=== PATIENT | female | born 1935 | race Caucasian/White ===

== ENCOUNTER 2020-09-20 12:21 | Inpatient (IN) | payer OTHER ==
[~2020-09-20] VITALS: Ht 152.4 cm; Wt 38.6 kg
[~2020-09-20 12:21] MED LIST: ALENDRONATE SOD70 MG PO; ATENOLOL50 MG PO; CALCIUM + VITA1 EACH; CALCIUM + VITA1 EACH PO; CRANBERRY500 MG PO; FISH OIL 1,0001 EAC2 PO; LOSARTAN POTASS50 MG PO; PRAVASTATIN SOD10 MG PO; VITAMIN D1000 UNIT PO
[2020-09-20] MEDS ORDERED: PIPERACILLIN/TAZO 4.5 GM 100 ML IV STA (12:30)
[2020-09-20 13:53] LABS: BASOPHILS # (AUTO) 0.1 (0.0-0.1); BASOPHILS % 0.3 % (0.0-1.0); EOSINOPHILS # (AUTO) 0.2 (0.0-0.4); EOSINOPHILS % 0.7 % (0.0-6.0); HEMATOCRIT 35.3 % (34.2-44.1); HEMOGLOBIN 11.2 g/dL (12.0-16.0); LYMPHOCYTES # (AUTO) 13.7 (1.0-3.2); LYMPHOCYTES % 63.8 % (18.0-39.1); MEAN CORPUSCULAR HEMOGLOBIN 28.4 pg (28-32); MEAN CORPUSCULAR HGB CONC 31.7 g/dL (31-35); MEAN CORPUSCULAR VOLUME 89.6 fL (81-99); MONOCYTES # (AUTO) 1.1 (0.2-0.8); NEUTROPHILS # (AUTO) 6.4 (2.1-6.9); NEUTROPHILS % 29.7 % (38.7-80.0); PLATELET COUNT 311 x10e3/uL (140-360); RED BLOOD COUNT 3.94 x10e6/uL (3.6-5.1); RED CELL DISTRIBUTION WIDTH 16.3 % (11.7-14.4)
[2020-09-20 14:06] LABS: ALBUMIN 3.2 g/dL (3.5-5.0); ALBUMIN/GLOBULIN RATIO 0.7 (0.8-2.0); ANION GAP 14.3 mmol/L (8-16); CALCIUM 8.9 mg/dL (8.4-10.2); CREATININE, SERUM 1.17 mg/dL (0.57-1.11); POTASSIUM 3.3 mmol/L (3.5-5.1)
[2020-09-20 14:24] LABS: MONOCYTES % (MANUAL) 3 % (3.4-9.0); NEUTROPHILS % (MANUAL) 18 % (40-74)
[2020-09-20 14:34] LABS: BLAST CELLS % MANUAL 2; LYMPHOCYTES % (MANUAL) 77 % (19-48)
[2020-09-20 14:36] LABS: ANISOCYTOSIS SLIGHT; PLATELET ESTIMATE ADEQUATE; PLATELET MORPHOLOGY COMMENT NORMAL; RBC MORPHOLOGY COMMENT NORMAL
[2020-09-20 16:05] VITALS: BP 131/68
[2020-09-20 16:45] VITALS: BP 131/68
[2020-09-20] MEDS ORDERED: ONDANSETRON HCL INJ 2MG/ML 2ML 2 MG/ML VIAL IV PRN (18:00)
[2020-09-20] MEDS ORDERED: VANCOMYCIN 1GM/NS 250 ML 250 ML IV SCH (18:00)
[2020-09-20] MEDS ORDERED: ACETAMINOPHEN 325 MG TAB PO PRN (18:00)
[2020-09-20] MEDS ORDERED: SODIUM CHLORIDE 0.9% 250ML 250 ML ONE (18:13)
[2020-09-20 18:54] LABS: CLARITY,URINE CLOUDY (CLEAR); COLOR,URINE BROWN (YELLOW); KETONES,URINE NEGATIVE (NEGATIVE); LEUKOCYTE ESTERASE ,URINE LARGE (NEGATIVE); NITRITE,URINE POSITIVE (NEGATIVE); PROTEIN,URINE DIPSTICK >=300 (NEGATIVE); URINE UROBILINOGEN 1 mg/dL (0.2 - 1)
[2020-09-20 19:06] LABS: BACTERIA,URINE MANY /HPF; WBC,URINE (MAN) 0-5 /HPF (0-5)
[2020-09-20] MEDS: VANCOMYCIN 500MG/NS 0.9% 100ML 100 ML IV SCH (20:00)
[2020-09-20 20:06] VITALS: BP 131/68
[2020-09-20 20:19] VITALS: BP 121/84
[2020-09-20 20:53] VITALS: BP_SYST 121; BP_DIAS 67; BP_DIAS 84
[2020-09-20] MEDS: CEFEPIME 1GM/NS 0.9% 50 ML 50 ML IV SCH (21:10)
[2020-09-20] MEDS ORDERED: CEFEPIME 1GM/NS 0.9% 50 ML 50 ML IV SCH (22:00)
[2020-09-20] MEDS ORDERED: HYDRALAZINE HCL 25 MG TAB PO PRN (22:30)
[2020-09-21] VITALS (7 sets, daily range): BP systolic 116–137; BP diastolic 77–89
[2020-09-21 06:14] LABS: BASOPHILS # (AUTO) 0.1 (0.0-0.1); BASOPHILS % 0.3 % (0.0-1.0); EOSINOPHILS # (AUTO) 0.1 (0.0-0.4); EOSINOPHILS % 0.4 % (0.0-6.0); HEMATOCRIT 30.9 % (34.2-44.1); HEMOGLOBIN 9.8 g/dL (12.0-16.0); LYMPHOCYTES # (AUTO) 18.7 (1.0-3.2); LYMPHOCYTES % 66.2 % (18.0-39.1); MEAN CORPUSCULAR HEMOGLOBIN 28.1 pg (28-32); MEAN CORPUSCULAR HGB CONC 31.7 g/dL (31-35); MEAN CORPUSCULAR VOLUME 88.5 fL (81-99); MONOCYTES # (AUTO) 1.4 (0.2-0.8); NEUTROPHILS # (AUTO) 7.8 (2.1-6.9); NEUTROPHILS % 27.5 % (38.7-80.0); PLATELET COUNT 284 x10e3/uL (140-360); RED BLOOD COUNT 3.49 x10e6/uL (3.6-5.1); RED CELL DISTRIBUTION WIDTH 16.3 % (11.7-14.4)
[2020-09-21 06:41] LABS: ALBUMIN 2.9 g/dL (3.5-5.0); ALBUMIN/GLOBULIN RATIO 0.7 (0.8-2.0); ANION GAP 13.7 mmol/L (8-16); CALCIUM 8.7 mg/dL (8.4-10.2); CREATININE, SERUM 1.26 mg/dL (0.57-1.11); POTASSIUM 3.7 mmol/L (3.5-5.1)
[2020-09-21 11:01] LABS: LYMPHOCYTES % (MANUAL) 62 % (19-48); MONOCYTES % (MANUAL) 5 % (3.4-9.0); NEUTROPHILS % (MANUAL) 24 % (40-74)
[2020-09-21 11:02] LABS: ANISOCYTOSIS SLIGHT; PLATELET ESTIMATE ADEQUATE; PLATELET MORPHOLOGY COMMENT RARE EDTA CLUMPING; RBC MORPHOLOGY COMMENT NORMAL
[2020-09-21] MEDS: VANCOMYCIN 500MG/NS 0.9% 100ML 100 ML IV SCH (20:49)
[2020-09-21] MEDS: CEFEPIME 1GM/NS 0.9% 50 ML 50 ML IV SCH (21:34)
[2020-09-22] VITALS (8 sets, daily range): BP systolic 107–148; BP diastolic 65–81
[2020-09-22 05:15] LABS: BASOPHILS # (AUTO) 0.1 (0.0-0.1); BASOPHILS % 0.3 % (0.0-1.0); EOSINOPHILS # (AUTO) 0.3 (0.0-0.4); EOSINOPHILS % 1.1 % (0.0-6.0); HEMATOCRIT 29.8 % (34.2-44.1); HEMOGLOBIN 9.6 g/dL (12.0-16.0); LYMPHOCYTES # (AUTO) 19.7 (1.0-3.2); LYMPHOCYTES % 65.7 % (18.0-39.1); MEAN CORPUSCULAR HEMOGLOBIN 28.8 pg (28-32); MEAN CORPUSCULAR HGB CONC 32.2 g/dL (31-35); MEAN CORPUSCULAR VOLUME 89.5 fL (81-99); MONOCYTES # (AUTO) 1.5 (0.2-0.8); NEUTROPHILS # (AUTO) 8.1 (2.1-6.9); PLATELET COUNT 282 x10e3/uL (140-360); RED BLOOD COUNT 3.33 x10e6/uL (3.6-5.1); RED CELL DISTRIBUTION WIDTH 16.5 % (11.7-14.4)
[2020-09-22 05:39] LABS: ANION GAP 12.7 mmol/L (8-16); CALCIUM 8.2 mg/dL (8.4-10.2); CREATININE, SERUM 1.32 mg/dL (0.57-1.11); POTASSIUM 3.7 mmol/L (3.5-5.1)
[2020-09-22 07:13] LABS: EOSINOPHILS % (MANUAL) 2 % (0-7); LYMPHOCYTES % (MANUAL) 67 % (19-48); MONOCYTES % (MANUAL) 2 % (3.4-9.0); NEUTROPHILS % (MANUAL) 29 % (40-74)
[2020-09-22 07:15] LABS: ANISOCYTOSIS SLIGHT; PLATELET ESTIMATE ADEQUATE; PLATELET MORPHOLOGY COMMENT NORMAL; RBC MORPHOLOGY COMMENT NORMAL
[2020-09-22] MEDS ORDERED: COLLAGENASE 5 GM TUBE TOP SCH (09:00)
[2020-09-22] MEDS ORDERED: MEROPENEM 500MG/ NS 50ML 50 ML IV ONE (14:15)
[2020-09-22] MEDS ORDERED: MEROPENEM 500MG 500 MG in SODIUM CHLORIDE 0.9% 50ML 50 ML IV SCH (14:15)
[2020-09-22] MEDS: SODIUM CHLORIDE 0.9% 1000ML 1,000 ML IV SCH (14:18)
[2020-09-22] MEDS: PRAVASTATIN 20 MG TAB PO SCH (20:44)
[2020-09-22] MEDS: VANCOMYCIN 500MG/NS 0.9% 100ML 100 ML IV SCH (20:44)
[2020-09-22] MEDS: MEROPENEM 500MG/ NS 50ML 50 ML IV SCH (21:56)
[2020-09-22] MEDS: HEPARIN SOD (PORCINE) 5,000 UNIT/ML VIAL SC SCH (22:10)
[2020-09-23] VITALS (7 sets, daily range): BP systolic 111–128; BP diastolic 68–75
[2020-09-23] MEDS: SODIUM CHLORIDE 0.9% 1000ML 1,000 ML IV SCH ×2 (03:00→14:33)
[2020-09-23] MEDS: MEROPENEM 500MG/ NS 50ML 50 ML IV SCH ×4 (05:05→22:10)
[2020-09-23 05:52] LABS: BASOPHILS # (AUTO) 0.1 (0.0-0.1); BASOPHILS % 0.5 % (0.0-1.0); EOSINOPHILS # (AUTO) 0.4 (0.0-0.4); EOSINOPHILS % 1.7 % (0.0-6.0); HEMATOCRIT 27.6 % (34.2-44.1); HEMOGLOBIN 8.6 g/dL (12.0-16.0); LYMPHOCYTES # (AUTO) 15.9 (1.0-3.2); LYMPHOCYTES % 67.2 % (18.0-39.1); MEAN CORPUSCULAR HEMOGLOBIN 28.2 pg (28-32); MEAN CORPUSCULAR HGB CONC 31.2 g/dL (31-35); MEAN CORPUSCULAR VOLUME 90.5 fL (81-99); MONOCYTES # (AUTO) 1.1 (0.2-0.8); MONOCYTES % 4.8 % (4.4-11.3); NEUTROPHILS # (AUTO) 5.9 (2.1-6.9); NEUTROPHILS % 24.7 % (38.7-80.0); PLATELET COUNT 243 x10e3/uL (140-360); RED BLOOD COUNT 3.05 x10e6/uL (3.6-5.1); RED CELL DISTRIBUTION WIDTH 16.9 % (11.7-14.4)
[2020-09-23 06:12] LABS: ANION GAP 12.5 mmol/L (8-16); CALCIUM 8.1 mg/dL (8.4-10.2); CREATININE, SERUM 0.91 mg/dL (0.57-1.11); POTASSIUM 3.5 mmol/L (3.5-5.1)
[2020-09-23] MEDS ORDERED: NON-FORMULARY MEDICATION (Pravastatin Sodium 10 MG) PO SCH (09:00)
[2020-09-23] MEDS: COLLAGENASE 5 GM TUBE TOP SCH (09:24)
[2020-09-23] MEDS: HEPARIN SOD (PORCINE) 5,000 UNIT/ML VIAL SC SCH ×2 (09:34→21:15)
[2020-09-23] MEDS: VANCOMYCIN 750MG/NS 150ML IVPB 150 ML IV SCH (20:40)
[2020-09-23] MEDS: PRAVASTATIN 20 MG TAB PO SCH (20:40)
[2020-09-24] VITALS (8 sets, daily range): BP systolic 109–130; BP diastolic 62–78
[2020-09-24] MEDS: SODIUM CHLORIDE 0.9% 1000ML 1,000 ML IV SCH ×2 (05:24→16:35)
[2020-09-24] MEDS: MEROPENEM 500MG/ NS 50ML 50 ML IV SCH ×4 (05:24→22:08)
[2020-09-24 07:44] LABS: BASOPHILS # (AUTO) 0.1 (0.0-0.1); BASOPHILS % 0.3 % (0.0-1.0); EOSINOPHILS # (AUTO) 0.3 (0.0-0.4); EOSINOPHILS % 1.5 % (0.0-6.0); HEMATOCRIT 26.5 % (34.2-44.1); HEMOGLOBIN 8.1 g/dL (12.0-16.0); LYMPHOCYTES # (AUTO) 13.9 (1.0-3.2); LYMPHOCYTES % 68.7 % (18.0-39.1); MEAN CORPUSCULAR HGB CONC 30.6 g/dL (31-35); MEAN CORPUSCULAR VOLUME 91.7 fL (81-99); MONOCYTES % 4.9 % (4.4-11.3); NEUTROPHILS # (AUTO) 4.8 (2.1-6.9); NEUTROPHILS % 23.8 % (38.7-80.0); PLATELET COUNT 235 x10e3/uL (140-360); RED BLOOD COUNT 2.89 x10e6/uL (3.6-5.1); RED CELL DISTRIBUTION WIDTH 16.9 % (11.7-14.4)
[2020-09-24 08:07] LABS: ANION GAP 13.6 mmol/L (8-16); BLOOD UREA NITROGEN 28 mg/dL (7-26); BUN/CREATININE RATIO 35 (6-25); CALCIUM 7.9 mg/dL (8.4-10.2); CARBON DIOXIDE 21 mmol/L (22-29); CHLORIDE 116 mmol/L (98-107); CREATININE, SERUM 0.81 mg/dL (0.57-1.11); EST GLOMERULAR FILTRATION RATE > 60 ML/MIN (60-); GLUCOSE 92 mg/dL (74-118); POTASSIUM 3.6 mmol/L (3.5-5.1); SODIUM 147 mmol/L (136-145)
[2020-09-24] MEDS: HEPARIN SOD (PORCINE) 5,000 UNIT/ML VIAL SC SCH ×2 (09:21→21:53)
[2020-09-24] MEDS: HYDROCODONE/APAP 5MG-325MG TAB PO PRN (13:49)
[2020-09-24 16:23] LABS: % IRON SATURATION 20 % (15-50); IRON 37 ug/dL (50-170); TOTAL IRON BINDING CAPACITY 189 ug/dL (261-478); TRANSFERRIN 135 mg/dL (180-382)
[2020-09-24] MEDS: COLLAGENASE 5 GM TUBE TOP SCH (17:56)
[2020-09-24] MEDS: VANCOMYCIN 750MG/NS 150ML IVPB 150 ML IV SCH (20:16)
[2020-09-24] MEDS: PRAVASTATIN 20 MG TAB PO SCH (21:49)
[2020-09-25] VITALS: BP 135/85
[2020-09-25] MEDS: MEROPENEM 500MG/ NS 50ML 50 ML IV SCH ×4 (04:14→21:36)
[2020-09-25 05:23] LABS: BASOPHILS # (AUTO) 0.1 (0.0-0.1); BASOPHILS % 0.4 % (0.0-1.0); EOSINOPHILS # (AUTO) 0.4 (0.0-0.4); EOSINOPHILS % 2.1 % (0.0-6.0); HEMOGLOBIN 7.8 g/dL (12.0-16.0); LYMPHOCYTES % 62.4 % (18.0-39.1); MEAN CORPUSCULAR HEMOGLOBIN 28.2 pg (28-32); MEAN CORPUSCULAR HGB CONC 31.2 g/dL (31-35); MEAN CORPUSCULAR VOLUME 90.3 fL (81-99); MONOCYTES # (AUTO) 0.9 (0.2-0.8); MONOCYTES % 5.2 % (4.4-11.3); NEUTROPHILS # (AUTO) 5.1 (2.1-6.9); PLATELET COUNT 237 x10e3/uL (140-360); RED BLOOD COUNT 2.77 x10e6/uL (3.6-5.1); RED CELL DISTRIBUTION WIDTH 17.1 % (11.7-14.4)
[2020-09-25] MEDS: SODIUM CHLORIDE 0.9% 1000ML 1,000 ML IV SCH ×2 (06:55→23:27)
[2020-09-25 08:07] VITALS: BP 136/76
[2020-09-25 08:29] VITALS: BP 136/76
[2020-09-25] MEDS: HEPARIN SOD (PORCINE) 5,000 UNIT/ML VIAL SC SCH ×2 (08:56→21:30)
[2020-09-25] MEDS: COLLAGENASE 5 GM TUBE TOP SCH (09:01)
[2020-09-25 11:28] VITALS: BP 123/72
[2020-09-25] MEDS ORDERED: ONDANSETRON HCL 4 MG ORAL DISINTEGRATING TAB PO PRN (13:45)
[2020-09-25] MEDS: IRON SUCROSE 100 MG in SODIUM CHLORIDE 0.9% 100 ML 100 ML IV SCH (15:00)
[2020-09-25 15:32] VITALS: BP 133/72
[2020-09-25] MEDS ORDERED: GADOBENATE DIMEGLUMINE 1 ML IV ONE (15:57)
[2020-09-25] MEDS: VANCOMYCIN 750MG/NS 150ML IVPB 150 ML IV SCH (20:30)
[2020-09-25 21:00] VITALS: BP 134/75
[2020-09-25] MEDS: PRAVASTATIN 20 MG TAB PO SCH (21:36)
[2020-09-25] MEDS: HYDROCODONE/APAP 5MG-325MG TAB PO PRN (21:53)
[2020-09-26] VITALS (8 sets, daily range): BP systolic 123–150; BP diastolic 69–84
[2020-09-26] MEDS: MEROPENEM 500MG/ NS 50ML 50 ML IV SCH ×4 (04:04→21:05)
[2020-09-26] MEDS: COLLAGENASE 5 GM TUBE TOP SCH (09:44)
[2020-09-26] MEDS: HEPARIN SOD (PORCINE) 5,000 UNIT/ML VIAL SC SCH ×2 (10:04→21:00)
[2020-09-26] MEDS ORDERED: MAGNESIUM HYDROXIDE 30 ML UDC PO ONE (11:15)
[2020-09-26] MEDS: IRON SUCROSE 100 MG in SODIUM CHLORIDE 0.9% 100 ML 100 ML IV SCH (14:37)
[2020-09-26] MEDS: DOCUSATE SODIUM 100 MG CAP PO SCH (17:28)
[2020-09-26] MEDS: SODIUM CHLORIDE 0.9% 1000ML 1,000 ML IV SCH (20:54)
[2020-09-26] MEDS: VANCOMYCIN 750MG/NS 150ML IVPB 150 ML IV SCH (20:54)
[2020-09-26] MEDS: HYDROCODONE/APAP 5MG-325MG TAB PO PRN (21:05)
[2020-09-26] MEDS: PRAVASTATIN 20 MG TAB PO SCH (21:05)
[2020-09-27] VITALS (7 sets, daily range): BP systolic 123–134; BP diastolic 60–79
[2020-09-27] MEDS: SODIUM CHLORIDE 0.9% 1000ML 1,000 ML IV SCH ×2 (02:37→12:24)
[2020-09-27] MEDS: MEROPENEM 500MG/ NS 50ML 50 ML IV SCH ×4 (05:21→21:35)
[2020-09-27] MEDS: HYDROCODONE/APAP 5MG-325MG TAB PO PRN (05:22)
[2020-09-27 06:39] LABS: BASOPHILS # (AUTO) 0.1 (0.0-0.1); BASOPHILS % 0.4 % (0.0-1.0); EOSINOPHILS # (AUTO) 0.4 (0.0-0.4); HEMOGLOBIN 7.5 g/dL (12.0-16.0); LYMPHOCYTES # (AUTO) 12.7 (1.0-3.2); LYMPHOCYTES % 58.4 % (18.0-39.1); MEAN CORPUSCULAR HEMOGLOBIN 28.3 pg (28-32); MEAN CORPUSCULAR HGB CONC 31.3 g/dL (31-35); MEAN CORPUSCULAR VOLUME 90.6 fL (81-99); MONOCYTES # (AUTO) 1.1 (0.2-0.8); MONOCYTES % 4.9 % (4.4-11.3); NEUTROPHILS # (AUTO) 7.2 (2.1-6.9); NEUTROPHILS % 33.2 % (38.7-80.0); PLATELET COUNT 248 x10e3/uL (140-360); RED BLOOD COUNT 2.65 x10e6/uL (3.6-5.1)
[2020-09-27 06:56] LABS: ALANINE AMINOTRANSFERASE 8 IU/L (0-55); ALBUMIN 1.8 g/dL (3.5-5.0); ALBUMIN/GLOBULIN RATIO 0.6 (0.8-2.0); ALKALINE PHOSPHATASE 47 IU/L (40-150); ANION GAP 9.3 mmol/L (8-16); BLOOD UREA NITROGEN 27 mg/dL (7-26); BUN/CREATININE RATIO 43 (6-25); CALCIUM 7.1 mg/dL (8.4-10.2); CARBON DIOXIDE 23 mmol/L (22-29); CHLORIDE 117 mmol/L (98-107); CREATININE, SERUM 0.63 mg/dL (0.57-1.11); EST GLOMERULAR FILTRATION RATE > 60 ML/MIN (60-); GLUCOSE 80 mg/dL (74-118); POTASSIUM 3.3 mmol/L (3.5-5.1); SODIUM 146 mmol/L (136-145)
[2020-09-27 07:44] LABS: ANISOCYTOSIS SLIGHT; EOSINOPHILS % (MANUAL) 2 % (0-7); LYMPHOCYTES % (MANUAL) 64 % (19-48); MONOCYTES % (MANUAL) 2 % (3.4-9.0); NEUTROPHILS % (MANUAL) 32 % (40-74); PLATELET ESTIMATE ADEQUATE; PLATELET MORPHOLOGY COMMENT NORMAL; RBC MORPHOLOGY COMMENT NORMAL
[2020-09-27] MEDS: COLLAGENASE 5 GM TUBE TOP SCH (08:36)
[2020-09-27] MEDS: DOCUSATE SODIUM 100 MG CAP PO SCH ×2 (08:49→16:02)
[2020-09-27] MEDS: HEPARIN SOD (PORCINE) 5,000 UNIT/ML VIAL SC SCH ×2 (10:06→21:00)
[2020-09-27] MEDS: IRON SUCROSE 100 MG in SODIUM CHLORIDE 0.9% 100 ML 100 ML IV SCH (13:45)
[2020-09-27] MEDS ORDERED: DEXTROSE 5% 1,000 ML IV ONE (14:15)
[2020-09-27] MEDS ORDERED: POTASSIUM BICARBONATE/CIT AC 20 MEQ TABLET.EFF PO ONE (14:45)
[2020-09-27] MEDS ORDERED: HYDROCODONE/APAP 5MG-325MG TAB PO PRN (19:30)
[2020-09-27] MEDS: VANCOMYCIN 750MG/NS 150ML IVPB 150 ML IV SCH (20:22)
[2020-09-27] MEDS: PRAVASTATIN 20 MG TAB PO SCH (20:23)
[2020-09-28] VITALS (7 sets, daily range): BP systolic 112–137; BP diastolic 65–71
[2020-09-28] MEDS: MEROPENEM 500MG/ NS 50ML 50 ML IV SCH ×4 (05:01→22:07)
[2020-09-28 06:35] LABS: BASOPHILS # (AUTO) 0.1 (0.0-0.1); BASOPHILS % 0.3 % (0.0-1.0); EOSINOPHILS # (AUTO) 0.5 (0.0-0.4); HEMATOCRIT 23.1 % (34.2-44.1); HEMOGLOBIN 7.2 g/dL (12.0-16.0); LYMPHOCYTES # (AUTO) 13.3 (1.0-3.2); LYMPHOCYTES % 57.3 % (18.0-39.1); MEAN CORPUSCULAR HEMOGLOBIN 28.5 pg (28-32); MEAN CORPUSCULAR HGB CONC 31.2 g/dL (31-35); MEAN CORPUSCULAR VOLUME 91.3 fL (81-99); MONOCYTES % 8.4 % (4.4-11.3); NEUTROPHILS # (AUTO) 7.1 (2.1-6.9); NEUTROPHILS % 30.8 % (38.7-80.0); PLATELET COUNT 217 x10e3/uL (140-360); RED BLOOD COUNT 2.53 x10e6/uL (3.6-5.1); RED CELL DISTRIBUTION WIDTH 17.3 % (11.7-14.4)
[2020-09-28 07:05] LABS: ANION GAP 9.7 mmol/L (8-16); BLOOD UREA NITROGEN 25 mg/dL (7-26); BUN/CREATININE RATIO 42 (6-25); CALCIUM 7.5 mg/dL (8.4-10.2); CARBON DIOXIDE 26 mmol/L (22-29); CHLORIDE 109 mmol/L (98-107); CREATININE, SERUM 0.59 mg/dL (0.57-1.11); EST GLOMERULAR FILTRATION RATE > 60 ML/MIN (60-); GLUCOSE 89 mg/dL (74-118); POTASSIUM 3.7 mmol/L (3.5-5.1); SODIUM 141 mmol/L (136-145)
[2020-09-28 07:53] LABS: EOSINOPHILS % (MANUAL) 1 % (0-7); LYMPHOCYTES % (MANUAL) 62 % (19-48); MONOCYTES % (MANUAL) 4 % (3.4-9.0); NEUTROPHILS % (MANUAL) 33 % (40-74)
[2020-09-28 07:54] LABS: ANISOCYTOSIS SLIGHT; PLATELET ESTIMATE ADEQUATE; PLATELET MORPHOLOGY COMMENT NORMAL; RBC MORPHOLOGY COMMENT NORMAL
[2020-09-28] MEDS: COLLAGENASE 5 GM TUBE TOP SCH (09:25)
[2020-09-28] MEDS: DOCUSATE SODIUM 100 MG CAP PO SCH ×2 (09:25→17:42)
[2020-09-28] MEDS: HEPARIN SOD (PORCINE) 5,000 UNIT/ML VIAL SC SCH ×2 (09:37→21:11)
[2020-09-28] MEDS: VANCOMYCIN 750MG/NS 150ML IVPB 150 ML IV SCH (20:36)
[2020-09-28 20:49] LABS: CLARITY,URINE TURBID (CLEAR); COLOR,URINE PINK (YELLOW)
[2020-09-28 20:50] LABS: KETONES,URINE NEGATIVE (NEGATIVE); LEUKOCYTE ESTERASE ,URINE LARGE (NEGATIVE); NITRITE,URINE NEGATIVE (NEGATIVE); PROTEIN,URINE DIPSTICK 2+ (NEGATIVE); URINE UROBILINOGEN 0.2 mg/dL (0.2 - 1)
[2020-09-28 21:06] LABS: BACTERIA,URINE RARE /HPF; EPITHELIAL CELLS,URINE RARE /LPF; RBC,URINE >50 /HPF (0-5)
[2020-09-28] MEDS: PRAVASTATIN 20 MG TAB PO SCH (21:10)
[2020-09-29] VITALS: BP 121/72
[2020-09-29] MEDS: MEROPENEM 500MG/ NS 50ML 50 ML IV SCH ×2 (04:24→10:00)
[2020-09-29 08:00] VITALS: BP 110/68
[2020-09-29] MEDS: COLLAGENASE 5 GM TUBE TOP SCH (09:00)
[2020-09-29] MEDS: DOCUSATE SODIUM 100 MG CAP PO SCH ×2 (09:00→16:34)
[2020-09-29] MEDS: HEPARIN SOD (PORCINE) 5,000 UNIT/ML VIAL SC SCH (09:00)
[2020-09-29 11:58] VITALS: BP 117/71
[2020-09-29 16:00] VITALS: BP 123/65
[2020-09-29] MEDS: METHYLPREDNISOLONE SOD SUCC 40 MG/ML VIAL 1ML IV SCH (16:00)
[2020-09-29] MEDS: SODIUM CHLORIDE 0.9% IV SCH (16:00)
[2020-09-29] MEDS: DAPTOMYCIN IV SCH (16:00)
[2020-09-29] MEDS ORDERED: SODIUM CHLORIDE 0.9% 250ML 250 ML ONE (16:22)
[2020-09-29 20:00] VITALS: BP 112/71
[2020-09-29] MEDS: PRAVASTATIN 20 MG TAB PO SCH (21:08)
[2020-09-29] MEDS: AZTREONAM 1 GM/NS 50 ML 50 ML IV SCH (21:09)
[2020-09-29] MEDS ORDERED: METHYLPREDNISOLONE SOD SUCC 40 MG/ML VIAL 1ML IV SCH (22:00)
[2020-09-30] VITALS (8 sets, daily range): BP systolic 69–117; BP diastolic 54–76
[2020-09-30] MEDS: METHYLPREDNISOLONE SOD SUCC 40 MG/ML VIAL 1ML IV SCH ×2 (01:28→05:03)
[2020-09-30 05:53] LABS: BASOPHILS # (AUTO) 0.1 (0.0-0.1); BASOPHILS % 0.3 % (0.0-1.0); EOSINOPHILS % 0.1 % (0.0-6.0); HEMOGLOBIN 8.5 g/dL (12.0-16.0); LYMPHOCYTES # (AUTO) 13.3 (1.0-3.2); LYMPHOCYTES % 47.6 % (18.0-39.1); MEAN CORPUSCULAR HEMOGLOBIN 28.8 pg (28-32); MEAN CORPUSCULAR HGB CONC 31.5 g/dL (31-35); MEAN CORPUSCULAR VOLUME 91.5 fL (81-99); MONOCYTES # (AUTO) 0.9 (0.2-0.8); MONOCYTES % 3.1 % (4.4-11.3); NEUTROPHILS # (AUTO) 13.1 (2.1-6.9); NEUTROPHILS % 47.1 % (38.7-80.0); PLATELET COUNT 308 x10e3/uL (140-360); RED BLOOD COUNT 2.95 x10e6/uL (3.6-5.1)
[2020-09-30 06:18] LABS: ANION GAP 11.2 mmol/L (8-16); BLOOD UREA NITROGEN 35 mg/dL (7-26); BUN/CREATININE RATIO 49 (6-25); CALCIUM 7.9 mg/dL (8.4-10.2); CARBON DIOXIDE 27 mmol/L (22-29); CHLORIDE 105 mmol/L (98-107); CREATININE, SERUM 0.71 mg/dL (0.57-1.11); EST GLOMERULAR FILTRATION RATE > 60 ML/MIN (60-); GLUCOSE 145 mg/dL (74-118); POTASSIUM 4.2 mmol/L (3.5-5.1); SODIUM 139 mmol/L (136-145)
[2020-09-30] MEDS: AZTREONAM 1 GM/NS 50 ML 50 ML IV SCH ×3 (06:23→21:48)
[2020-09-30] MEDS: DOCUSATE SODIUM 100 MG CAP PO SCH ×2 (09:17→17:24)
[2020-09-30] MEDS: COLLAGENASE 5 GM TUBE TOP SCH (09:17)
[2020-09-30] MEDS: SODIUM CHLORIDE 0.9% IV SCH (17:24)
[2020-09-30] MEDS: DAPTOMYCIN IV SCH (17:24)
[2020-09-30] MEDS: PRAVASTATIN 20 MG TAB PO SCH (21:48)
[2020-10-01] VITALS (8 sets, daily range): BP systolic 105–144; BP diastolic 60–102
[2020-10-01] MEDS: AZTREONAM 1 GM/NS 50 ML 50 ML IV SCH ×3 (05:01→21:24)
[2020-10-01 05:45] LABS: BASOPHILS # (AUTO) 0.2 (0.0-0.1); BASOPHILS % 0.4 % (0.0-1.0); EOSINOPHILS # (AUTO) 0.3 (0.0-0.4); EOSINOPHILS % 0.7 % (0.0-6.0); HEMATOCRIT 23.6 % (34.2-44.1); HEMOGLOBIN 7.4 g/dL (12.0-16.0); LYMPHOCYTES # (AUTO) 26.9 (1.0-3.2); LYMPHOCYTES % 64.4 % (18.0-39.1); MEAN CORPUSCULAR HEMOGLOBIN 28.6 pg (28-32); MEAN CORPUSCULAR HGB CONC 31.4 g/dL (31-35); MEAN CORPUSCULAR VOLUME 91.1 fL (81-99); MONOCYTES # (AUTO) 2.3 (0.2-0.8); MONOCYTES % 5.6 % (4.4-11.3); NEUTROPHILS # (AUTO) 11.3 (2.1-6.9); PLATELET COUNT 325 x10e3/uL (140-360); RED BLOOD COUNT 2.59 x10e6/uL (3.6-5.1); RED CELL DISTRIBUTION WIDTH 18.4 % (11.7-14.4)
[2020-10-01] MEDS: COLLAGENASE 5 GM TUBE TOP SCH (09:36)
[2020-10-01] MEDS: DOCUSATE SODIUM 100 MG CAP PO SCH ×2 (09:36→17:00)
[2020-10-01 11:30] LABS: LYMPHOCYTES % (MANUAL) 78 % (19-48); MONOCYTES % (MANUAL) 4 % (3.4-9.0); NEUTROPHILS % (MANUAL) 17 % (40-74)
[2020-10-01 11:31] LABS: ANISOCYTOSIS SLIGHT; HYPOCHROMASIA SLIGHT
[2020-10-01 11:32] LABS: PLATELET ESTIMATE ADEQUATE; PLATELET MORPHOLOGY COMMENT NORMAL; RBC MORPHOLOGY COMMENT ABNORMAL
[2020-10-01] MEDS: DAPTOMYCIN IV SCH (18:13)
[2020-10-01] MEDS: SODIUM CHLORIDE 0.9% IV SCH (18:13)
[2020-10-01] MEDS: PRAVASTATIN 20 MG TAB PO SCH (21:24)
[2020-10-02] VITALS (8 sets, daily range): BP systolic 115–124; BP diastolic 61–76
[2020-10-02] MEDS: AZTREONAM 1 GM/NS 50 ML 50 ML IV SCH ×3 (05:15→22:40)
[2020-10-02] MEDS: COLLAGENASE 5 GM TUBE TOP SCH ×2 (05:50→12:00)
[2020-10-02 05:53] LABS: BASOPHILS # (AUTO) 0.1 (0.0-0.1); BASOPHILS % 0.4 % (0.0-1.0); EOSINOPHILS # (AUTO) 0.8 (0.0-0.4); EOSINOPHILS % 2.7 % (0.0-6.0); HEMATOCRIT 25.3 % (34.2-44.1); HEMOGLOBIN 8.2 g/dL (12.0-16.0); MEAN CORPUSCULAR HEMOGLOBIN 29.1 pg (28-32); MEAN CORPUSCULAR HGB CONC 32.4 g/dL (31-35); MEAN CORPUSCULAR VOLUME 89.7 fL (81-99); MONOCYTES # (AUTO) 1.5 (0.2-0.8); NEUTROPHILS # (AUTO) 6.2 (2.1-6.9); NEUTROPHILS % 21.3 % (38.7-80.0); PLATELET COUNT 349 x10e3/uL (140-360); RED BLOOD COUNT 2.82 x10e6/uL (3.6-5.1); RED CELL DISTRIBUTION WIDTH 18.3 % (11.7-14.4)
[2020-10-02 06:13] LABS: ANION GAP 11.2 mmol/L (8-16); BLOOD UREA NITROGEN 43 mg/dL (7-26); BUN/CREATININE RATIO 62 (6-25); CALCIUM 7.7 mg/dL (8.4-10.2); CARBON DIOXIDE 27 mmol/L (22-29); CHLORIDE 102 mmol/L (98-107); CREATININE, SERUM 0.69 mg/dL (0.57-1.11); EST GLOMERULAR FILTRATION RATE > 60 ML/MIN (60-); GLUCOSE 79 mg/dL (74-118); POTASSIUM 4.2 mmol/L (3.5-5.1); SODIUM 136 mmol/L (136-145)
[2020-10-02] MEDS: DOCUSATE SODIUM 100 MG CAP PO SCH ×2 (08:47→16:11)
[2020-10-02 09:30] LABS: ANISOCYTOSIS SLIGHT; EOSINOPHILS % (MANUAL) 4 % (0-7); LYMPHOCYTES % (MANUAL) 67 % (19-48); METAMYELOCYTES % (MANUAL) 2 % (0-0); MONOCYTES % (MANUAL) 2 % (3.4-9.0); NEUTROPHILS % (MANUAL) 23 % (40-74); PLATELET ESTIMATE ADEQUATE; PLATELET MORPHOLOGY COMMENT NORMAL
[2020-10-02 09:31] LABS: POLYCHROMASIA FEW
[2020-10-02 09:32] LABS: RBC MORPHOLOGY COMMENT NORMAL
[2020-10-02] MEDS: SODIUM CHLORIDE 0.9% IV SCH (17:05)
[2020-10-02] MEDS: DAPTOMYCIN IV SCH (17:05)
[2020-10-02] MEDS: PRAVASTATIN 20 MG TAB PO SCH (20:53)
[2020-10-03] VITALS (8 sets, daily range): BP systolic 113–159; BP diastolic 65–78
[2020-10-03] MEDS: AZTREONAM 1 GM/NS 50 ML 50 ML IV SCH ×3 (05:44→21:18)
[2020-10-03] MEDS: DOCUSATE SODIUM 100 MG CAP PO SCH ×2 (09:42→17:53)
[2020-10-03 10:28] LABS: BASOPHILS # (AUTO) 0.1 (0.0-0.1); BASOPHILS % 0.4 % (0.0-1.0); EOSINOPHILS # (AUTO) 0.7 (0.0-0.4); HEMATOCRIT 25.5 % (34.2-44.1); LYMPHOCYTES # (AUTO) 13.7 (1.0-3.2); LYMPHOCYTES % 60.7 % (18.0-39.1); MEAN CORPUSCULAR HEMOGLOBIN 28.8 pg (28-32); MEAN CORPUSCULAR HGB CONC 31.4 g/dL (31-35); MEAN CORPUSCULAR VOLUME 91.7 fL (81-99); MONOCYTES # (AUTO) 1.4 (0.2-0.8); MONOCYTES % 6.4 % (4.4-11.3); NEUTROPHILS # (AUTO) 6.3 (2.1-6.9); PLATELET COUNT 340 x10e3/uL (140-360); RED BLOOD COUNT 2.78 x10e6/uL (3.6-5.1); RED CELL DISTRIBUTION WIDTH 18.4 % (11.7-14.4)
[2020-10-03 13:37] LABS: EOSINOPHILS % (MANUAL) 5 % (0-7); LYMPHOCYTES % (MANUAL) 64 % (19-48); METAMYELOCYTES % (MANUAL) 1 % (0-0); MONOCYTES % (MANUAL) 4 % (3.4-9.0); NEUTROPHILS % (MANUAL) 25 % (40-74)
[2020-10-03 13:39] LABS: ANISOCYTOSIS SLIGHT; HYPOCHROMASIA SLIGHT; PLATELET ESTIMATE ADEQUATE; PLATELET MORPHOLOGY COMMENT NORMAL
[2020-10-03 13:40] LABS: POLYCHROMASIA FEW
[2020-10-03 13:41] LABS: RBC MORPHOLOGY COMMENT NORMAL
[2020-10-03] MEDS: SODIUM CHLORIDE 0.9% IV SCH (16:00)
[2020-10-03] MEDS: DAPTOMYCIN IV SCH (16:00)
[2020-10-03] MEDS: LACTOBACILLUS ACIDOPHILUS CAPSULE PO SCH (17:54)
[2020-10-03] MEDS: PRAVASTATIN 20 MG TAB PO SCH (21:18)
[2020-10-03] MEDS: HEPARIN SOD (PORCINE) 5,000 UNIT/ML VIAL SC SCH (21:33)
[2020-10-04 02:04] VITALS: BP 117/61
[2020-10-04] MEDS: AZTREONAM 1 GM/NS 50 ML 50 ML IV SCH ×2 (05:30→13:53)
[2020-10-04 05:44] VITALS: BP 123/74
[2020-10-04 08:00] VITALS: BP 132/68
[2020-10-04 08:28] VITALS: BP 132/68
[2020-10-04] MEDS: HEPARIN SOD (PORCINE) 5,000 UNIT/ML VIAL SC SCH (09:25)
[2020-10-04] MEDS: DOCUSATE SODIUM 100 MG CAP PO SCH ×2 (09:27→16:47)
[2020-10-04] MEDS: LACTOBACILLUS ACIDOPHILUS CAPSULE PO SCH ×2 (09:27→16:47)
[2020-10-04] MEDS: COLLAGENASE 5 GM TUBE TOP SCH (10:33)
[2020-10-04 11:53] VITALS: BP 144/70
[2020-10-04 15:49] VITALS: BP 130/64
[2020-10-04] MEDS: DAPTOMYCIN IV SCH (16:47)
[2020-10-04] MEDS: SODIUM CHLORIDE 0.9% IV SCH (16:47)
[2020-10-04] MEDS ORDERED: COLACE100 MG PO (18:26)
[2020-10-04] MEDS ORDERED: PROBIOTIC & AC1 EACH (18:27)
[2020-10-04] MEDS ORDERED: [UNRECOGNIZED DRUG - OTHER] TP (18:29)
[2020-10-04] MEDS ORDERED: AZACTAM1 GM IV (18:31)
[2020-10-04] MEDS ORDERED: CUBICIN500 MG/VIA IV (18:32)
== END 2020-10-04 20:01 | DRG 871 ==
LOC: ER 12:25 → ERHOLD 12:55 → MED/SURG2 16:00 → OBSVTOIN 09-21 10:28
PROVIDERS: ADMIT Internal Medicine; ATTEND Internal Medicine
PROC: 02HV33Z Insertion of Infusion Device into Superior Vena Cava, Percutaneous Approach (ICD-10-PCS; principal; 2020-09-26)
PROC: 02HV33Z Insertion of Infusion Device into Superior Vena Cava, Percutaneous Approach (ICD-10-PCS; 2020-10-03)
DX: A41.9 Sepsis, unspecified organism (principal); L89.154 Pressure ulcer of sacral region, stage 4; E43 Unspecified severe protein-calorie malnutrition; N17.9 Acute kidney failure, unspecified; C95.10 Chronic leukemia of unspecified cell type not having achieved remission; M86.8X8 Other osteomyelitis, other site; N12 Tubulo-interstitial nephritis, not specified as acute or chronic; E87.0 Hyperosmolality and hypernatremia; Z68.1 Body mass index [BMI] 19.9 or less, adult; F03.90 Unspecified dementia, unspecified severity, without behavioral disturbance, psychotic disturbance, mood disturbance, and anxiety; E11.69 Type 2 diabetes mellitus with other specified complication; B95.62 Methicillin resistant Staphylococcus aureus infection as the cause of diseases classified elsewhere; B96.5 Pseudomonas (aeruginosa) (mallei) (pseudomallei) as the cause of diseases classified elsewhere; E77.8 Other disorders of glycoprotein metabolism; E83.51 Hypocalcemia; E88.09 Other disorders of plasma-protein metabolism, not elsewhere classified; D63.8 Anemia in other chronic diseases classified elsewhere; G32.89 Other specified degenerative disorders of nervous system in diseases classified elsewhere; Z20.822 Contact with and (suspected) exposure to COVID-19; T36.8X5A Adverse effect of other systemic antibiotics, initial encounter
CPT/HCPCS: 36415; 36569; 71045; 72197; 80048; 80053; 80202; 81001; 83540; 83605; 84145; 84466; 85025; 85730; 87040; 87071; 87086; 87186; 87205; 96360; 96361; 97139; 99251; 99284; G0378; J0692; J1644; J1756; J2543; J2920; J3370; J7030; J7050; J7070; U0002